=== PATIENT | male | born 1990 | race African-American/Black ===

== ENCOUNTER 2019-05-13 09:59 | Emergency (ER) | payer OTHER ==
[~2019-05-13] VITALS: Ht 177.8 cm; Wt 93.3 kg
[2019-05-13] MEDS ORDERED: KETOROLAC 30 MG/ML VIAL (J1885) IV ONE (10:30)
[2019-05-13 10:40] LABS: HEMATOCRIT 42.9 % (42.0-52.0); HEMOGLOBIN 13.7 g/dl (13.5-17.5); MEAN CORPUSCULAR HEMOGLOBIN 30.1 pg (27.0-33.0); MEAN CORPUSCULAR HGB CONC 31.9 g/dl (32.0-36.5); MEAN CORPUSCULAR VOLUME 94.3 fl (80.0-96.0); PLATELET COUNT, AUTOMATED 165 10^3/uL (150-450); RED BLOOD COUNT 4.55 10^6/uL (4.30-6.10); WHITE BLOOD COUNT 9.2 10^3/uL (4.0-10.0)
[2019-05-13 11:02] LABS: ERYTHROCYTE SEDIMENTATION RATE 14 mm/hr (0-15)
--- NOTE | 2019-05-13 11:09 | REP ---
CHEST, TWO VIEWS: Two views of the chest are performed. There are no prior studies for comparison. There is no acute infiltrate in either lung. The heart is not significantly enlarged. There is density at the right cardiophrenic angle probably representing cardiophrenic fat pad, atelectasis/infiltrate or pericardial cyst. Mediastinal silhouette is otherwise unremarkable. Visualized osseous structures are intact. IMPRESSION: Density at the right cardiophrenic angle may represent cardiophrenic fat pad, atelectasis/infiltrate or pericardial cyst. Recommend followup CT of the chest. Electronically Signed by Jai Bailey MD 05/13/2019 07:08 P
[2019-05-13 11:12] LABS: BLOOD UREA NITROGEN 12 MG/DL (7-18); CALCIUM LEVEL 9.2 MG/DL (8.5-10.1); CARBON DIOXIDE LEVEL 31 MEQ/L (21-32); CHLORIDE LEVEL 104 MEQ/L (98-107); CK-MB VALUE MASS 1.8 NG/ML (<3.6); CPK CREATINE PHOSPHOKINASE 811 U/L (39-308); CREATININE FOR GFR 1.42 MG/DL (0.70-1.30); GLOMERULAR FILTRATION RATE > 60.0 (>60); GLUCOSE, FASTING 107 MG/DL (70-100); MB/CK RELATIVE INDEX 0.22 (< OR =4); POTASSIUM SERUM 4.4 MEQ/L (3.5-5.1); SODIUM LEVEL 140 MEQ/L (136-145); TROPONIN I 0.13 NG/ML (< 0.10)
[2019-05-13] MEDS ORDERED: ISOVUE-370 76% 100ML VIAL (Q9967) As Ordered ONE (11:58)
--- NOTE | 2019-05-13 12:49 | REP ---
CT ANGIOGRAM CHEST: TECHNIQUE: Axial contrast enhanced images from the thoracic inlet to the upper abdomen using 100 mL Isovue 370 intravenous contrast material with multiplanar reformations. There is no CT evidence of pulmonary embolism. There is no thoracic aortic aneurysm or dissection. Residual thymic tissue is seen in the anterior mediastinum. No axillary adenopathy is seen. There is mild right hilar adenopathy with two mildly enlarged lymph nodes measuring 2 cm in short axis and 1.7 cm in short axis. There is adjacent central consolidative infiltrate in the right middle lobe and right lower lobe. There is some mild thickening along the minor fissure. Left lung is clear. Heart s normal in size. There is no pleural or pericardial effusion. Visualized upper abdominal structures are unremarkable. IMPRESSION: No CT evidence of pulmonary embolism. Mild right hilar adenopathy with adjacent central consolidative infiltrate/atelectasis in the medial aspect of the right middle and lower lobes. Recommend followup CT with contrast after treatment and certainly within 3 months. Electronically Signed by Jai Bailey MD 05/13/2019 07:09 P
[2019-05-13 13:18] LABS: CK-MB VALUE MASS 1.6 NG/ML (<3.6); MB/CK RELATIVE INDEX 0.22 (< OR =4); TROPONIN I 0.12 NG/ML (< 0.10)
[2019-05-13] MEDS ORDERED: NS 1,000 ML IV ONE (13:30)
[2019-05-13] MEDS ORDERED: DOXY100C37 PO (13:43)
[2019-05-13 14:03] VITALS: BP 114/61
--- NOTE | 2019-05-13 21:12 | ECGEPIP ---
[facility] - ED Test Date: 2019-05-13 Pat Name: CHESTER BONE Department: Room: - Gender: Male French Instructor: DANE : 1990 Requested By: Darcy Dueñas Order Number: [id number] Reading MD: Darcy Dueñas Measurements Intervals [place] Rate: 92 P: 62 RI: 154 QRS: 55 QRSD: 90 T: 39 QT: 351 QTc: 435 Interpretive Statements SINUS RHYTHM NO PRIOR Electronically Signed on 05-13-2019 21:11:53 EST by Darcy Dueñas
--- NOTE | 2019-05-14 13:08 | ED PDOC ---
Post-Departure Follow-Up alexa young faxed formal report of cta chest forfu Conner Chao MD May 14, 2019 13:08
== END 2019-05-13 14:10 | disposition home or self-care (01) ==
LOC: M ED 09:59
DX: M94.0 Chondrocostal junction syndrome [Tietze] (principal); J18.9 Pneumonia, unspecified organism; F17.290 Nicotine dependence, other tobacco product, uncomplicated
CPT/HCPCS: 36415; 71046; 71275; 80048; 82550; 82553; 84484; 85027; 85379; 85652; 93005; 96361; 96374; 99284; J1885; Q9967

== ENCOUNTER 2023-12-13 11:30 | Emergency (ER) | payer OTHER ==
[~2023-12-13] VITALS: Ht 175.3 cm; Wt 99.6 kg
[~2023-12-13 11:30] MED LIST: DOXY-323 PO
[2023-12-13 12:09] LABS: BASO % 0.6 % (0.0-1.0); EOS # 0.1 10^3/uL (0.0-0.5); EOS % 1.5 % (0.0-3.0); HEMATOCRIT 43.6 % (42.0-52.0); HEMOGLOBIN 14.5 g/dl (13.5-17.5); LYMPH # 1.7 10^3/uL (1.5-5.0); LYMPH % 25.5 % (24.0-44.0); MEAN CORPUSCULAR HEMOGLOBIN 31.3 pg (27.0-33.0); MEAN CORPUSCULAR HGB CONC 33.3 g/dl (32.0-36.5); MEAN CORPUSCULAR VOLUME 94.2 fl (80.0-96.0); MONO # 0.5 10^3/uL (0.0-0.8); MONO % 7.6 % (2.0-8.0); NEUTROPHILS # 4.2 10^3/uL (1.5-8.5); NEUTROPHILS % 64.5 % (36.0-66.0); PLATELET COUNT, AUTOMATED 216 10^3/uL (150-450); RED BLOOD COUNT 4.63 10^6/uL (4.30-6.10); WHITE BLOOD COUNT 6.5 10^3/uL (4.0-10.0)
[2023-12-13 12:21] LABS: PARTIAL THROMBOPLASTIN TIME 24.3 SECONDS (24.8-34.2); PROTHROMBIN TIME 12.9 SECONDS (12.5-14.5)
[2023-12-13] MEDS ORDERED: ISOVUE-370 76% 100ML VIAL As Ordered ONE (12:22)
[2023-12-13 12:30] LABS: LIPASE 30 U/L (12-53)
[2023-12-13 12:31] LABS: AMYLASE 49 U/L (30-118)
[2023-12-13 12:32] LABS: ALKALINE PHOSPHATASE 46 U/L (46-116); ALT/SGPT 46 U/L (7.0-40); AST/SGOT 46 U/L (<34); BILIRUBIN,DIRECT 0.3 MG/DL (<0.4); BILIRUBIN,TOTAL 0.8 MG/DL (0.3-1.2); BLOOD UREA NITROGEN 13 MG/DL (9-23); CALCIUM LEVEL 9.4 MG/DL (8.5-10.1); CARBON DIOXIDE LEVEL 28 MMOL/L (20-31); CHLORIDE LEVEL 111 MMOL/L (98-107); CREATININE FOR GFR 1.26 MG/DL (0.70-1.30); GLOMERULAR FILTRATION RATE > 60.0 (>60); GLUCOSE, FASTING 103 MG/DL (60-100); POTASSIUM SERUM 4.5 MMOL/L (3.5-5.1); SODIUM LEVEL 143 MMOL/L (136-145)
[2023-12-13] MEDS: NS 500 ML IV ONE (13:09)
[2023-12-13 14:15] VITALS: BP 130/60; TEMP 97.8; O2SAT 97
== END 2023-12-13 14:27 | disposition home or self-care (01) ==
LOC: EDBD 11:30 → M ED 11:30
DX: S62.112A Displaced fracture of triquetrum [cuneiform] bone, left wrist, initial encounter for closed fracture (principal); S60.221A Contusion of right hand, initial encounter; S60.222A Contusion of left hand, initial encounter; S30.0XXA Contusion of lower back and pelvis, initial encounter; V28.49XA Other motorcycle driver injured in noncollision transport accident in traffic accident, initial encounter; F17.200 Nicotine dependence, unspecified, uncomplicated; M71.352 Other bursal cyst, left hip; Z79.2 Long term (current) use of antibiotics; Y92.410 Unspecified street and highway as the place of occurrence of the external cause; Y93.89 Activity, other specified; Y99.9 Unspecified external cause status
CPT/HCPCS: 36415; 70450; 71045; 71260; 72125; 73080; 73090; 73110; 73130; 74177; 80047; 80048; 80076; 82150; 83690; 85025; 85610; 85730; 86850; 86900; 86901; 93041; 94760; 99285; Q9967

== ENCOUNTER 2024-11-10 20:43 | Emergency (ER) | payer OTHER ==
[~2024-11-10] VITALS: Ht 177.8 cm; Wt 104.5 kg
[~2024-11-10 20:43] MED LIST changes: -DOXY-323 PO; +DOXY-441 PO
[2024-11-11] MEDS: ACETAMINOPHEN 325 MG TAB PO ONE (02:23)
[2024-11-11 04:00] VITALS: BP 128/63; TEMP 97.3; O2SAT 99
== END 2024-11-11 04:15 | disposition home or self-care (01) ==
LOC: M ED 20:43
DX: S50.12XA Contusion of left forearm, initial encounter (principal); S93.402A Sprain of unspecified ligament of left ankle, initial encounter; S01.01XA Laceration without foreign body of scalp, initial encounter; Y04.0XXA Assault by unarmed brawl or fight, initial encounter; F17.200 Nicotine dependence, unspecified, uncomplicated; F10.10 Alcohol abuse, uncomplicated; Y92.830 Public park as the place of occurrence of the external cause; Y93.89 Activity, other specified; Y99.9 Unspecified external cause status; Z79.899 Other long term (current) drug therapy